=== PATIENT | female | born 1970 | race Asian ===

== ENCOUNTER 2016-08-03 21:50 | Emergency (ER) | payer OTHER ==
[~2016-08-03] VITALS: Ht 160 cm; Wt 62.6 kg
[~2016-08-03 21:50] MED LIST: LEVOTHYROXINE0.05 M1 PO; NAPROSYN 500 M500 MG PO; PANTOPRAZOLE SO40 MG PO
[2016-08-03 22:23] LABS: ABSOLUTE BASOPHIL COUNT 0.1 /CUMM (0.0-0.2); ABSOLUTE EOSINOPHIL COUNT 0.3 /CUMM (0.0-0.7); ABSOLUTE GRANULOCYTE CT 7.1 /CUMM (1.4-6.5); ABSOLUTE LYMPH COUNT 2.6 /CUMM (1.2-3.4); ABSOLUTE MONOCYTE COUNT 0.6 /CUMM (0.10-0.60); BASOPHIL % 0.6 % (0.0-2.0); EOSINOPHIL % 3.2 % (0-5); GRANULOCYTE % 66.3 % (42.2-75.2); HEMATOCRIT 34.2 % (37-47); MEAN CORPUSCULAR HGB 26.5 PG (27.0-31.0); MEAN CORPUSCULAR HGB CONC 33.2 G/DL (33.0-37.0); MEAN CORPUSCULAR VOLUME 79.7 FL (81.0-99.0); MEAN PLATELET VOLUME 8.7 FL (7.4-10.4); PLATELET COUNT 267 /CUMM (130-400); RBC DISTRIBUTION WIDTH 13.5 % (11.5-14.5); RED BLOOD CELL CT 4.29 /CUMM (4.20-5.40); WHITE BLOOD CELL COUNT 10.6 /CUMM (4.8-10.8)
--- NOTE | 2016-08-04 00:17 | ED GI/GU/ABDOMINAL COMPLAINT ---
History of Present Illness General Chief Complaint: Abdominal Pain/Flank Pain Stated Complaint: PT IS HAVING VERY BAD ABDOMINAL PAIN 2DAYS Source: patient, family, old records Exam Limitations: no limitations Vital Signs & Intake/Output Vital Signs & Intake/Output Vital Signs Date Time Temp Pulse Resp B/P Pulse O2 O2 Flow FiO2 Ox Delivery Rate 08/04 0216 96.6 75 20 105/66 98 Room Air 08/03 2332 Room Air 08/03 2159 97.0 82 18 137/83 99 Room Air ED Intake and Output 08/04 0000 08/03 1200 Intake Total 1000 Output Total Balance 1000 Intake, IV 1000 Patient 138 lb Weight Allergies Coded Allergies: NO KNOWN ALLERGIES (03/16/14) Reconcile Medications Hyoscyamine Sulfate (Levsin-Sl) 0.125 MG TAB.SUBL 1-2 TAB SL Q4P PRN abdominal pain Levothyroxine Sodium 50 MCG TABLET 0.05 MG PO DAILY THYROID HEALTH (Reported) Naproxen (Naprosyn) 250 MG TABLET 500 MG PO Q12P PRN headache Pantoprazole Sodium 40 MG TABLET.DR 40 MG PO DAILY ACID REFLUX (Reported) Tramadol HCl (Ultram) 50 MG TABLET 1-2 TAB PO Q6PRN PRN severe pain Triage Note: PT COMPLAINS OF DIFFUSE ABD PAIN FOR THE PAST 2 DAYS, DENIES N/V/D LBM YESTERDAY AND NORMAL, PAIN IS SHARP/CRAMPING. PT FEELS SHE HAS BACTERIA INFECTION Triage Nurses Notes Reviewed? yes LMP (ages 10-50): now ? n Is pt currently ? No Onset: Morning Duration: hour(s):, constant, continues in ED Timing: recent history Quality/Severity: aching, moderate Location: periumbilical Radiation: no radiation Activities at Onset: none Prior Abdominal Problems: none Past Sexual History: Unobtainable at this time No Modifying Factors: none Associated Symptoms: abdominal pain, loss of appetite HPI: 1 day prior to admission patient complains of throbbing periumbilical pain constant nonradiating moderate in severity associated with decreased appetite. There's been no fever chills chest pain cough shortness of breath headache dysuria rash bleeding vomiting or diarrhea. Past History Travel History Traveled to [place] past 21 day No Medical History Any Pertinent Medical History? 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 No Review of Systems Review of Systems Constitutional: Reports: no symptoms. EENTM: Reports: no symptoms. Respiratory: Reports: no symptoms. Cardiovascular: Reports: no symptoms. GI: Reports: see HPI, abdominal pain. Genitourinary: Reports: no symptoms. Musculoskeletal: Reports: no symptoms. Skin: Reports: no symptoms. Neurological/Psychological: Reports: no symptoms. Hematologic/Endocrine: Reports: no symptoms. Immunologic/Allergic: Reports: no symptoms. All Other Systems: Reviewed and Negative Physical Exam Physical Exam General Appearance: well developed/nourished, alert, awake, anxious, mild distress, obese Head: atraumatic, normal appearance Eyes: Bilateral: normal appearance, PERRL, EOMI, normal inspection. Ears, Nose, Throat, Mouth: hearing grossly normal, moist mucous membrane Neck: normal inspection, supple, full range of motion, normal alignment Respiratory: normal breath sounds, chest non-tender, no respiratory distress, quiet respiration, lungs clear Cardiovascular: regular rate/rhythm, normal peripheral pulses, norml femoral pulses equa Peripheral Pulses: 4+ carotid (R), 4+ carotid (L) Gastrointestinal: normal bowel sounds, soft, non-tender, no organomegaly Back: normal inspection, normal range of motion Extremities: normal range of motion, no ligament instability Neurologic/Psych: no motor/sensory deficits, awake, alert, oriented x 3, normal gait, normal mood/affect, 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 No Severe Sepsis Present: No Septic Shock Present: No Progress Differential Diagnosis: appendicitis, biliary colic, bowel obstruction, diverticulitis Plan of Care: Orders Procedure Date/time Status Add-on Test (ER Only) 08/03 2303 Active HUMAN BETA HCG SCREEN 08/03 2208 Complete URINALYSIS 08/03 2202 Complete LACTIC ACID 08/03 2202 Complete COMPREHENSIVE METABOLIC PANEL 08/03 2202 Complete CBC WITHOUT DIFFERENTIAL 08/03 2202 Complete Laboratory Tests 08/04/16 0103: Lactic Acid Cancelled 08/03/16 2330: Urine Color STRAW, Urine Clarity CLEAR, Urine pH 6.5, Ur Specific [place] <= 1.005, Urine Protein NEG, Urine Ketones NEG, Urine Nitrite NEG, Urine Bilirubin NEG, Urine Urobilinogen 0.2, Ur Leukocyte Esterase NEG, Ur Microscopic SEDIMENT EXAMINED, Urine Hemoglobin MOD H, Urine Glucose NEG 08/03/16 2209: Anion Gap 12, Estimated GFR > 60, BUN/Creatinine Ratio 15.7, Glucose 145 H, Lactic Acid 1.4, Calcium 9.6, Total Bilirubin 0.4, AST 25, ALT 35, Alkaline Phosphatase 75, Total Protein 7.5, Albumin 4.2, Globulin 3.3, Albumin/Globulin Ratio 1.3, Total Beta HCG NEGATIVE, CBC w Diff NO MAN DIFF REQ, RBC 4.29, MCV 79.7 L, MCH 26.5 L, RDW 13.5, MPV 8.7, Gran % 66.3, Lymphocytes % 24.2, Monocytes % 5.7, Eosinophils % 3.2, Basophils % 0.6, Absolute Granulocytes 7.1 H, Absolute Lymphocytes 2.6, Absolute Monocytes 0.6, Absolute Eosinophils 0.3, Absolute Basophils 0.1, PUBS MCHC 33.2 Diagnostic Imaging: Viewed by Me: CT Scan. Discussed w/RAD: CT Scan. Radiology Impression: No evidence for acute abdominal or pelvic inflammatory or infectious processes. Initial ED EKG: none Departure Departure Time of Disposition: 145 Disposition: HOME OR SELF CARE Condition: Stable Clinical Impression Primary Impression: Abdominal pain in female patient Referrals: FAY BOBBY,LAURA Bazan (PCP/Family) Departure Forms: Customer Survey General Discharge Information Prescriptions: Current Visit Scripts Hyoscyamine Sulfate (Levsin-Sl) 1-2 TAB SL Q4P PRN abdominal pain #30 TAB Tramadol HCl (Ultram) 1-2 TAB PO Q6PRN PRN severe pain #30 TAB
--- NOTE | 2016-08-04 01:08 | CT SCAN REPORT ---
EXAMINATION: CT ABDOMEN AND PELVIS WITH CONTRAST CLINICAL INFORMATION: Left greater than right lower quadrant pain. COMPARISON: 01/12/2013. TECHNIQUE: Contiguous axial thin section helical images of the abdomen and pelvis were performed following the administration of 95 mL of intravenous Optiray 320. The data set was reformatted in the coronal and sagittal planes and reviewed on an independent workstation. DLP: 270 mGy-cm. FINDINGS: There is mild dependent bibasilar atelectasis. There is a stable calcified nodule measuring 3 mm within the left lower lobe on image 87/672. The visualized lung bases are otherwise clear. The visualized portions of the heart are unremarkable. The liver is of normal size and attenuation without focal lesions nor intrahepatic biliary ductal dilation. A normal gallbladder is identified. There is no wall thickening or discernible pericholecystic fluid. The spleen, pancreas, adrenal glands are unremarkable. Both kidneys are of normal size and attenuation without hydronephrosis or nephrolithiasis. Following the administration of IV contrast, prompt symmetric nephrograms are displayed. There is no abdominal free fluid. There is neither mesenteric nor retroperitoneal lymphadenopathy. Normal unopacified loops of small and large bowel are identified. The appendix is prominent in caliber measuring 8 mm; however, this is not significantly changed from prior exam, there is no adjacent inflammatory change, wall thickening or free fluid. There is no pelvic free fluid. The urinary bladder is unremarkable. There are 2 upper body myometrial fibroids. The largest measures 4.9 cm. There is neither pelvic nor inguinal lymphadenopathy. Bone windows: Neither sclerotic nor lytic bone lesions are identified. IMPRESSION: No evidence for acute abdominal or pelvic inflammatory or infectious processes. Uterine fibroids.
[2016-08-04] MEDS ORDERED: LEVSIN-SL0.125 MG SL (01:47)
[2016-08-04] MEDS ORDERED: ULTRAM50 M1 PO (01:47)
[2016-08-04 02:16] VITALS: BP 105/66
== END 2016-08-04 02:19 ==
LOC: ERH 21:50
PROVIDERS: Emergency Medicine
DX: R10.33 Periumbilical pain (principal)
CPT/HCPCS: 74177; 81001; 96374; J1885

== ENCOUNTER 2017-12-05 00:10 | Emergency (ER) | payer OTHER ==
[~2017-12-05 00:10] MED LIST changes: +HYDROXYZINE HCL25 M2 PO; +LEVSIN-SL0.125 MG SL; +PREDNISONE20 M1 PO; +ULTRAM50 M1 PO
== END 2017-12-05 02:33 | disposition admitted as inpatient to this hospital (09) ==
LOC: ERH 00:10
DX: R21 Rash and other nonspecific skin eruption (principal)